=== PATIENT | female | born 1940 | race Caucasian/White ===

== ENCOUNTER 2019-12-19 09:42 | Emergency (ER) | payer OTHER ==
[2019-12-19] MEDS ORDERED: LIDOCAINE 1% MPF 30 ML VIAL ONE (10:13)
--- NOTE | 2019-12-19 10:45 | RAD REPORT ---
EXAM DESCRIPTION: RAD - Wrist Right 2 View - 12/19/2019 10:27 am CLINICAL HISTORY: Right wrist pain status post injury FINDINGS: No fracture or dislocation is seen. Bones are osteoporotic. Limited two-view series obtained If the patient continues to have symptoms to suggest an occult fracture then a followup plain film se sabrina in 7 days would be recommended.
--- NOTE | 2019-12-19 10:47 | RAD REPORT ---
EXAM DESCRIPTION: RAD - Hand Right 3 View - 12/19/2019 10:27 am CLINICAL HISTORY: Right hand pain status post injury FINDINGS: No fracture or dislocation is seen.
--- NOTE | 2019-12-19 11:59 | ER ---
Nurse's Notes [facility] Name: Brooke Liu Age: 79 yrs Sex: Female : 1940 Arrival Date: 12/19/2019 Time: 09:44 Bed 13 Private MD: Diagnosis: Other slipping, tripping and stumbling and falls;Skin avulsioin, dorsum of right wrist; lacerations to lateral aspect of the 4th and 5th digist as well as the hypothenar eminence Presentation: 12/18 10:07 Chief complaint: Patient states: tripped and fell on sidewalk. fell forward skin tear iw to right wrist, laceration to 4th and 5th right digit, swelling to right hand. 10:07 Acuity: ERUM 4 iw 10:07 Method Of Arrival: Ambulatory iw 10:10 Coronavirus screen: Proceed with normal triage. Patient denies a cough. Patient denies iw shortness of breath or difficulty breathing. Patient denies measured and/or subjective temperature greater than 100.4F prior to today's visit. Patient denies travel on a cruise ship or to a country the [facility] currently lists as an affected area. Patient denies contact with known and/or suspected case of COVID-19. Ebola Screen: Patient negative for fever greater than or equal to 101.5 degrees Fahrenheit, and additional compatible Ebola Virus Disease symptoms Patient denies exposure to infectious person. Patient denies travel to an Ebola-affected area in the 21 days before illness onset. No symptoms or risks identified at this time. Initial Sepsis Screen: Does the patient meet any 2 criteria? No. Patient's initial sepsis screen is negative. Does the patient have a suspected source of infection? No. Patient's initial sepsis screen is negative. Risk Assessment: Do you want to hurt yourself or someone else? Patient reports no desire to harm self or others. Onset of symptoms was December 19, 2019. Historical: - Allergies: 10:14 Codeine; iw - Home Meds: 10:14 levothyroxine oral [Active]; Crestor oral oral [Active]; iw - PMHx: 10:14 Hypothyroidism; Hyperlipidemia; iw - PSHx: 10:14 Mastectomy, Left; Mastectomy, Right; iw - Immunization history:: Last tetanus immunization: unknown. Screenin:27 Abuse screen: Denies threats or abuse. Nutritional screening: No deficits noted. Tuberculosis screening: No symptoms or risk factors identified. Fall Risk None identified. Assessment: 10:22 General: Appears uncomfortable, Behavior is cooperative. Pain: Complains of pain in right hand. Neuro: Level of Consciousness is awake, alert, Oriented to person, place, time, situation. Cardiovascular: Heart tones S1 S2 present Capillary refill < 3 seconds Patient's skin is warm and dry. Pulses are palpable in right radial artery and left radial artery. Respiratory: Airway is patent Respiratory effort is even, unlabored, Respiratory pattern is regular, symmetrical. GI: No signs and/or symptoms were reported involving the gastrointestinal system. : No signs and/or symptoms were reported regarding the genitourinary system. EENT: No signs and/or symptoms were reported regarding the EENT system. Derm: No signs and/or symptoms reported regarding the dermatologic system. Musculoskeletal: Swelling present in dorsum of right hand. Injury Description: Laceration sustained to palmar aspect of middle phalanx of right little finger, palmar aspect of middle phalanx of right ring finger and outer aspect of right palm is 0.5 to 2.5 cm long, was sustained 30-60 minutes ago. a small amount of bleeding noted at this time. skin tear noted to top of right wrist. Abrasion noted to right side of upper face. 11:45 Reassessment: Wounds cleaned and dressed at this time. Pt tolerated well. 12:15 Reassessment: Discharge instructions given to Pt and education regarding prescriptions ah and wound care. Pt voiced understanding. Vital Signs: 10:10 BP 153 / 46; Pulse 89; Resp 16; Temp 97.8; Pulse Ox 98% on R/A; Weight 79.38 kg; Height iw 5 ft. 1 in. (154.94 cm); Pain 0/10; 12:00 BP 129 / 48; Pulse 55; Resp 18; Pulse Ox 100% ; ah 10:10 Body Mass Index 33.07 (79.38 kg, 154.94 cm) iw ED Course: 09:44 Patient arrived in ED. ag5 09:53 Elda Delgadillo, RN is Primary Nurse. 09:57 Vish Ku MD is Attending Physician. kdr 10:10 Triage completed. iw 10:14 Arm band placed on. iw 10:27 Hand Right 3 View XRAY In Process Unspecified. EDMS 10:27 Wrist Right 2 View In Process Unspecified. EDMS 10:27 Patient has correct armband on for positive identification. Bed in low position. Call light in reach. Side rails up X 1. 10:45 Assist provider with laceration repair on right hand using sutures. Set up tray. ah Performed by Deangelo HUTSON Dressed with Kerlix, Beck, Xeroform, Patient tolerated well. Patient did not have IV access during this emergency room visit. Dressings: Beck x 2 right hand non-adherent dressing x 1 right hand Vaseline gauze X 1; right hand. Administered Medications: 12:00 Drug: Tetanus-Diphtheria Toxoid Adult 0.5 ml {Rn Anesthetist: [employer]. Exp: 09/27/2021. Lot #: [id number]. } Route: IM; Site: right deltoid; 12:23 Follow up: Response: Medication administered at discharge. 12:07 Drug: traMADol 100 mg Route: PO; 12:24 Follow up: Response: Medication administered at discharge. 12:08 Drug: KeFLEX 500 mg Route: PO; 12:23 Follow up: Response: Medication administered at discharge. Outcome: 11:58 Discharge ordered by . [facility] 12:10 Discharged to home ambulatory. 12:10 Condition: good 12:10 Discharge instructions given to patient, Instructed on discharge instructions, follow up and referral plans. wound care, Demonstrated understanding of instructions, follow-up care, medications, wound care, Prescriptions given X 2. 12:24 Patient left the ED. Signatures: Dispatcher [employer] [facility] Vish Ku MD MD [facility] Suzy Sullivan, RN RN Azeem Banerjee ag5 Elda Delgadillo, RN RN
--- NOTE | 2019-12-19 11:59 | EDPHYS ---
Physician Documentation [facility] Name: Brooke Liu Age: 79 yrs Sex: Female : 1940 Arrival Date: 12/19/2019 Time: 09:44 Bed 13 Private MD: ED Physician Vish Ku HPI: 12/18 11:49 This 79 yrs old Female presents to ER via Ambulatory with complaints of Fall kdr Injury, Finger Injury. 11:49 Details of fall: The patient fell from an upright position, while standing. Onset: The kdr symptoms/episode began/occurred suddenly, just prior to arrival. Associated injuries: The patient sustained Right hand and wrist. Severity of symptoms: At their worst the symptoms were mild, in the emergency department the symptoms are unchanged. The patient has not experienced similar symptoms in the past. The patient has not recently seen a physician. The patient tripped and fell to the ground while walking. Her primary injury is to her right wrist and hand. Historical: - Allergies: 10:14 Codeine; iw - Home Meds: 10:14 levothyroxine oral [Active]; Crestor oral oral [Active]; iw - PMHx: 10:14 Hypothyroidism; Hyperlipidemia; iw - PSHx: 10:14 Mastectomy, Left; Mastectomy, Right; iw - Immunization history:: Last tetanus immunization: unknown. ROS: 11:49 Constitutional: Negative for fever, chills, and weight loss, Eyes: Negative for injury, kdr pain, redness, and discharge. 11:49 MS/extremity: Positive for abrasion, contusion, decreased range of motion, ecchymosis, erythema, laceration, pain, swelling, tenderness, warmth, of the dorsal aspect of right forearm, right wrist and right hand. Exam: 11:49 Constitutional: This is a well developed, well nourished patient who is awake, alert, kdr and in no acute distress. 11:49 Musculoskeletal/extremity: Extremities: grossly normal except: The patient has large 3 x 4 cm skin avulsion to the dorsum of the right wrist. She also has several lacerations to the volar aspect of the hypothenar eminence and the proximal 4th and 5th digits. See the procedure notes for exact locations. Vital Signs: 10:10 BP 153 / 46; Pulse 89; Resp 16; Temp 97.8; Pulse Ox 98% on R/A; Weight 79.38 kg; Height iw 5 ft. 1 in. (154.94 cm); Pain 0/10; 12:00 BP 129 / 48; Pulse 55; Resp 18; Pulse Ox 100% ; ah 10:10 Body Mass Index 33.07 (79.38 kg, 154.94 cm) iw Laceration: 11:28 Wound Repair of 2.7cm ( 1.1in ) subcutaneous laceration to palmar aspect of middle jr8 phalanx of right ring finger. Irregularly shaped.. Minimal bleeding noted.. Distal neuro/vascular/tendon intact. Anesthesia: Local anesthetic administered with 1 mls of 1% lidocaine. Wound prep: Extensive cleansing with hibiclenz, Wound irrigation with saline, Wound explored extensively. Skin closed with 6 4-0 Prolene using interrupted sutures and sterile technique. Patient tolerated well. 11:28 Wound Repair of 2.5cm ( 1.0in ) subcutaneous laceration to palmar aspect of middle jr8 phalanx of right little finger. Distal neuro/vascular/tendon intact. Wound prep: Extensive cleansing with hibiclenz, Wound irrigation with saline, Wound explored extensively. Skin closed with 4 4-0 Prolene using interrupted sutures and sterile technique. Patient tolerated well. 11:28 Wound Repair of 2cm ( 0.8in ) subcutaneous laceration to outer aspect of right palm. jr8 Linear shaped.. Minimal bleeding noted.. Distal neuro/vascular/tendon intact. Anesthesia: Local anesthetic administered with 1 mls of 1% lidocaine. Wound prep: Extensive cleansing with hibiclenz, Wound irrigation with saline, Wound explored extensively. Skin closed with 3 4-0 Prolene using interrupted sutures and sterile technique. Patient tolerated well. MDM: 11:49 Data reviewed: vital signs, nurses notes, radiologic studies. Counseling: I had a kdr detailed discussion with the patient and/or guardian regarding: the historical points, exam findings, and any diagnostic results supporting the discharge/admit diagnosis, radiology results, the need for outpatient follow up. ED course: The patient was stable in the ED and was happy with the plan for discharge and follow-up. 11:58 Patient medically screened. kdr 12/18 10:21 Order name: Hand Right 3 View XRAY; Complete Time: 11:48 kdr 12/18 10:27 Order name: Wrist Right 2 View; Complete Time: 11:48 EDMS Administered Medications: 12:00 Drug: Tetanus-Diphtheria Toxoid Adult 0.5 ml {Branch Account Executive: [employer]. Exp: 09/27/2021. Lot #: [id number]. } Route: IM; Site: right deltoid; 12:23 Follow up: Response: Medication administered at discharge. 12:07 Drug: traMADol 100 mg Route: PO; 12:24 Follow up: Response: Medication administered at discharge. 12:08 Drug: KeFLEX 500 mg Route: PO; 12:23 Follow up: Response: Medication administered at discharge. Disposition: 11:49 Co-signature as Attending Physician, Vish Ku MD I agree with the assessment and kdr plan of care. Disposition: 12/19/19 11:58 Discharged to Home. Impression: Other slipping, tripping and stumbling and falls, Skin avulsioin, dorsum of right wrist; lacerations to lateral aspect of the 4th and 5th digist as well as the hypothenar eminence. - Condition is Stable. - Discharge Instructions: Laceration Care, Adult, [id number]. - Prescriptions for Keflex 500 mg Oral Capsule - take 1 capsule by ORAL route every 6 hours for 10 days; 40 capsule. Tramadol 50 mg Oral Tablet - take 1 tablet by ORAL route every 8 hours as needed; 12 tablet. - Medication Reconciliation Form, Thank You Letter, Antibiotic Education, Prescription Opioid Use form. - Follow up: Private Physician; When: 2 - 3 days; Reason: If symptoms return, Further diagnostic work-up, Recheck today's complaints, Continuance of care, Re-evaluation by your physician. - Problem is new. - Symptoms have improved. - Notes: Sutures out in 10 days. Your wounds are very prone to infection. Return as soon as possible for any worening pain, redness or drainiage. Signatures: Dispatcher [employer] [facility] Vish Ku MD MD [facility] Suzy Sullivan RN RN Deangelo Friedman PA PA jr8 Elda Delgadillo RN RN Corrections: (The following items were deleted from the chart) 10:27 10:21 Wrist Right 3 View+RAD.RAD.BRZ ordered. [facility] 12:24 11:58 12/19/2019 11:58 Discharged to Home. Impression: Other slipping, tripping and ah stumbling and falls; Skin avulsioin, dorsum of right wrist; lacerations to lateral aspect of the 4th and 5th digist as well as the hypothenar eminence. Condition is Stable. Forms are Medication Reconciliation Form, Thank You Letter, Antibiotic Education, Prescription Opioid Use. Follow up: Private Physician; When: 2 - 3 days; Reason: If symptoms return, Further diagnostic work-up, Recheck today's complaints, Continuance of care, Re-evaluation by your physician. Problem is new. Symptoms have improved. kdr
[2019-12-19] MEDS ORDERED: CEPHALEXIN 250 MG CAP ONE (12:04)
[2019-12-19] MEDS ORDERED: TETANUS & DIPHTHERIA TOX,ADULT 0.5 ML VIAL ONE (12:04)
[2019-12-19] MEDS ORDERED: TRAMADOL HCL 50 MG TAB ONE (12:06)
[2019-12-20 02:07] VITALS: TEMP 97.8
[2019-12-20 02:09] VITALS: BP 129/48; O2SAT 100
== END 2019-12-19 12:24 | disposition home or self-care (01) ==
LOC: ER 09:42
PROC: 0JQJ0ZZ Repair Right Hand Subcutaneous Tissue and Fascia, Open Approach (ICD-10-PCS; principal; 2019-12-19)
DX: S61.214A Laceration without foreign body of right ring finger without damage to nail, initial encounter (principal); S61.411A Laceration without foreign body of right hand, initial encounter; W01.0XXA Fall on same level from slipping, tripping and stumbling without subsequent striking against object, initial encounter; Y93.89 Activity, other specified; Y92.9 Unspecified place or not applicable; Z23 Encounter for immunization; Z88.5 Allergy status to narcotic agent; E78.5 Hyperlipidemia, unspecified; E03.9 Hypothyroidism, unspecified
CPT/HCPCS: 90471; 90714; 99284

== ENCOUNTER 2019-12-29 12:03 | Emergency (ER) | payer OTHER ==
--- NOTE | 2019-12-29 12:40 | ER ---
Nurse's Notes [facility] Name: Brooke Liu Age: 79 yrs Sex: Female : 1940 Arrival Date: 12/29/2019 Time: 12:04 Bed 15 Private MD: Diagnosis: Encounter for removal of sutures Presentation: 12/28 12:13 Chief complaint: Patient states: SUTURES PLACED ON 7TH, TOLD TO RETURN IN 10 DAYS FOR bp REMOVAL. Coronavirus screen: Proceed with normal triage. Ebola Screen: No symptoms or risks identified at this time. Initial Sepsis Screen: Does the patient meet any 2 criteria? No. Patient's initial sepsis screen is negative. Does the patient have a suspected source of infection? No. Patient's initial sepsis screen is negative. Risk Assessment: Do you want to hurt yourself or someone else? Patient reports no desire to harm self or others. Onset of symptoms is unknown. 12:13 Method Of Arrival: Ambulatory bp 12:13 Acuity: ERUM 5 bp Triage Assessment: 12:15 General: Appears in no apparent distress. comfortable, Behavior is cooperative, bp appropriate for age, anxious. Pain: Denies pain. EENT: No deficits noted. Neuro: No deficits noted. Cardiovascular: No deficits noted. Respiratory: No deficits noted. GI: No signs and/or symptoms were reported involving the gastrointestinal system. : No signs and/or symptoms were reported regarding the genitourinary system. Derm: No deficits noted. Musculoskeletal: No deficits noted. Injury Description: HEALED SUTURES RIGHT HAND. Historical: - Allergies: 12:15 Codeine; bp - Home Meds: 12:15 Crestor Oral [Active]; levothyroxine oral [Active]; bp - PMHx: 12:15 Hyperlipidemia; Hypothyroidism; bp - Immunization history:: Adult Immunizations up to date. - Social history:: Smoking status: Patient denies any tobacco usage or history of. Screenin:17 Abuse screen: Denies threats or abuse. Denies injuries from another. Nutritional bp screening: No deficits noted. Tuberculosis screening: No symptoms or risk factors identified. Fall Risk None identified. Assessment: 12:17 General: SEE TRIAGE NOTE. bp 12:46 Reassessment: PT D/C HOME AMBULATORY, DX WITH SUTURE REMOVAL. bp Vital Signs: 12:13 BP 140 / 59; Pulse 63; Resp 16; Temp 97.4; Pulse Ox 98% ; bp 12:46 BP 133 / 61; Pulse 61; Resp 16; Temp 97.5; Pulse Ox 97% ; bp ED Course: 12:04 Patient arrived in ED. as 12:06 Franky Goldberg, RN is Primary Nurse. bp 12:14 Triage completed. bp 12:15 Arm band placed on. bp 12:17 Patient has correct armband on for positive identification. Bed in low position. Call bp light in reach. Side rails up X2. 12:19 Marline Gutiérrez FNP-C is [facility]. snw 12:19 Vivek Flores MD is Attending Physician. snw 12:46 No provider procedures requiring assistance completed. Patient did not have IV access bp during this emergency room visit. Administered Medications: No medications were administered Outcome: 12:40 Discharge ordered by MD. snw 12:46 Discharged to home ambulatory. bp 12:46 Condition: stable 12:46 Discharge instructions given to patient, Instructed on discharge instructions, follow up and referral plans. Demonstrated understanding of instructions, follow-up care. 12:48 Patient left the ED. bp Signatures: Marline Gutiérrez FNP-C TRAILER CHIEF-Csnw Sandi Ty as Franky Goldberg, RN RN bp
--- NOTE | 2019-12-29 12:40 | EDPHYS ---
Physician Documentation [facility] Name: Brooke Liu Age: 79 yrs Sex: Female : 1940 Arrival Date: 12/29/2019 Time: 12:04 Bed 15 Private MD: ED Physician Vivek Flores HPI: 12/28 12:43 This 79 yrs old Female presents to ER via Ambulatory with complaints of snw Suture Removal. 12:43 The patient has sutures on the right hand. Previous treatment: The patient was snw initially treated 10 day(s) ago, Treatment type: The patient's original treatment included sutures, Outpatient prescription(s): The patient was given prescription(s) for. Sutures/franci progress: The patient has no c/o's. The wound is well-healing with no redness, swelling, discharge, or dehiscence reported. The patient has not experienced similar symptoms in the past. no c/o. Historical: - Allergies: 12:15 Codeine; bp - Home Meds: 12:15 Crestor Oral [Active]; levothyroxine oral [Active]; bp - PMHx: 12:15 Hyperlipidemia; Hypothyroidism; bp - Immunization history:: Adult Immunizations up to date. - Social history:: Smoking status: Patient denies any tobacco usage or history of. ROS: 12:42 Constitutional: Negative for fever, chills, and weight loss, Eyes: Negative for injury, snw pain, redness, and discharge, ENT: Negative for injury, pain, and discharge, Neck: Negative for injury, pain, and swelling, Cardiovascular: Negative for chest pain, palpitations, and edema, Respiratory: Negative for shortness of breath, cough, wheezing, and pleuritic chest pain, Abdomen/GI: Negative for abdominal pain, nausea, vomiting, diarrhea, and constipation, Back: Negative for injury and pain, : Negative for injury, bleeding, discharge, and swelling, MS/Extremity: Negative for injury and deformity, Neuro: Negative for headache, weakness, numbness, tingling, and seizure, Psych: Negative for depression, anxiety, suicide ideation, homicidal ideation, and hallucinations. 12:42 Skin: Positive for need for suture removal. Exam: 12:40 Constitutional: This is a well developed, well nourished patient who is awake, alert, snw and in no acute distress. 12:40 Eyes: Pupils equal round and reactive to light, extra-ocular motions intact. Lids and lashes normal. Conjunctiva and sclera are non-icteric and not injected. Cornea within normal limits. Periorbital areas with no swelling, redness, or edema. ENT: Nares patent. No nasal discharge, no septal abnormalities noted. Tympanic membranes are normal and external auditory canals are clear. Oropharynx with no redness, swelling, or masses, exudates, or evidence of obstruction, uvula midline. Mucous membranes moist. Neck: Trachea midline, no thyromegaly or masses palpated, and no cervical lymphadenopathy. Supple, full range of motion without nuchal rigidity, or vertebral point tenderness. No Meningismus. Chest/axilla: Normal chest wall appearance and motion. Nontender with no deformity. No lesions are appreciated. Cardiovascular: Regular rate and rhythm with a normal S1 and S2. No gallops, murmurs, or rubs. Normal PMI, no JVD. No pulse deficits. Respiratory: Lungs have equal breath sounds bilaterally, clear to auscultation and percussion. No rales, rhonchi or wheezes noted. No increased work of breathing, no retractions or nasal flaring. Abdomen/GI: Soft, non-tender, with normal bowel sounds. No distension or tympany. No guarding or rebound. No evidence of tenderness throughout. Back: No spinal tenderness. No costovertebral tenderness. Full range of motion. Neuro: Awake and alert, GCS 15, oriented to person, place, time, and situation. Cranial nerves II-XII grossly intact. Motor strength 5/5 in all extremities. Sensory grossly intact. Cerebellar exam normal. Normal gait. Psych: Awake, alert, with orientation to person, place and time. Behavior, mood, and affect are within normal limits. 12:40 Head/face: Noted is healing abrasion to right hoahaoism. 12:40 Musculoskeletal/extremity: Extremities: grossly normal except: noted in the left knee: ecchymosis, tenderness, mild, Circulation is intact in all extremities. Sensation intact. 12:40 Skin: Appearance: normal except for affected area, injury, laceration(s), that can be described as clean, irregular, well approximated. scabbing, no exudate, no erythema. Vital Signs: 12:13 BP 140 / 59; Pulse 63; Resp 16; Temp 97.4; Pulse Ox 98% ; bp 12:46 BP 133 / 61; Pulse 61; Resp 16; Temp 97.5; Pulse Ox 97% ; bp MDM: 12:21 Patient medically screened. snw 12:42 Data reviewed: vital signs, nurses notes. Counseling: I had a detailed discussion with snw the patient and/or guardian regarding: the historical points, exam findings, and any diagnostic results supporting the discharge/admit diagnosis, the presence of at least one elevated blood pressure reading (>120/80) during this emergency department visit, the need for outpatient follow up, to return to the emergency department if symptoms worsen or persist or if there are any questions or concerns that arise at home. Administered Medications: No medications were administered Disposition: 12:48 Co-signature as Attending Physician, Vivek Flores MD. rn Disposition: 12/29/19 12:40 Discharged to Home. Impression: Encounter for removal of sutures. - Condition is Stable. - Discharge Instructions: Stitches, [place], or Adhesive Wound Closure, Wound Closure Removal, Wound Care. - Medication Reconciliation Form, Thank You Letter, Antibiotic Education, Prescription Opioid Use form. - Follow up: Emergency Department; When: As needed; Reason: Worsening of condition. Follow up: Private Physician; When: As needed; Reason: Continuance of care. Signatures: Marline Gutiérrez, ACCOUNT DEVELOPMENT MANAGER-C ACCOUNT DEVELOPMENT MANAGER-Csnw Vivek Flores MD MD rn Peltier, Brian, RN RN bp Corrections: (The following items were deleted from the chart) 12:48 12:40 12/29/2019 12:40 Discharged to Home. Impression: Encounter for removal of bp sutures. Condition is Stable. Discharge Instructions: Stitches, [place], or Adhesive Wound Closure, Wound Closure Removal, Wound Care. Forms are Medication Reconciliation Form, Thank You Letter, Antibiotic Education, Prescription Opioid Use. Follow up: Emergency Department; When: As needed; Reason: Worsening of condition. Follow up: Private Physician; When: As needed; Reason: Continuance of care. snw
[2019-12-29 12:54] VITALS: BP 133/61; TEMP 97.5; O2SAT 97
== END 2019-12-29 12:48 | disposition home or self-care (01) ==
LOC: ER 12:03
DX: Z48.02 Encounter for removal of sutures (principal)
CPT/HCPCS: 99281

== ENCOUNTER 2021-08-06 08:45 | Emergency (ER) | payer OTHER ==
--- OUTSIDE RECORDS SUMMARY | 2021-08-06 08:47 | XMS REPORT | Continuity of Care Document ---
:1940 Author Organization [facility] t Address [facility] [place] [id number] Care Team Providers Name Role Phone DR JEAN MARIE Attending Clinician Unavailable DR JEAN MARIE Admitting Clinician Unavailable Problems This patient has no known problems. Allergies, Adverse Reactions, Alerts This patient has no known allergies or adverse reactions. Medications This patient has no known medications. Procedures This patient has no known procedures. Encounters Start End Encounter Admission Attending Care Care Encounter Source Date/Time Date/Time Type Type Clinicians Facility Department ID 2017-07-21 Inpatient C [facility] [id number] [facility] 07:00:00 [facility] Results This patient has no known results.
[2021-08-06 10:08] LABS: SARS-COV-2 RT PCR POSITIVE (NEGATIVE)
--- NOTE | 2021-08-06 10:27 | ER ---
Nurse's Notes [facility] Name: Brooke Liu Age: 80 yrs Sex: Female : 1940 Arrival Date: 08/06/2021 Time: 08:46 Bed 6 Private MD: Diagnosis: Coronavirus infection, unspecified Presentation: 08/06 08:50 Chief complaint: Patient states: Stuffy nose x 3 days and body aches that began ss yesterday. Pt wants to make sure she doesn't have COVID before the holidays. Coronavirus screen: Client denies travel out of the [place] in the last 14 days. Ebola Screen: Patient denies exposure to infectious person. Patient denies travel to an Ebola-affected area in the 21 days before illness onset. Initial Sepsis Screen: Does the patient meet any 2 criteria? No. Patient's initial sepsis screen is negative. Does the patient have a suspected source of infection? No. Patient's initial sepsis screen is negative. Risk Assessment: Do you want to hurt yourself or someone else? Patient reports no desire to harm self or others. Onset of symptoms was August 03, 2021. 08:50 Method Of Arrival: Ambulatory ss 08:50 Acuity: ERUM 4 ss Historical: - Allergies: 08:51 Codeine; ll1 - PMHx: 08:51 Hyperlipidemia; Hypothyroidism; ll1 - Immunization history:: Adult Immunizations up to date. - Social history:: Smoking status: Patient denies any tobacco usage or history of. Patient/guardian denies using alcohol, street drugs, The patient lives with family. - Family history:: not pertinent. Screenin:02 Abuse screen: Denies threats or abuse. Nutritional screening: No deficits noted. ll1 Tuberculosis screening: No symptoms or risk factors identified. Fall Risk Total Johnson Fall Scale indicates No Risk (0-24 pts). Assessment: 09:01 General: Appears in no apparent distress. Behavior is calm, cooperative, appropriate ll1 for age. Pain: Denies pain. Neuro: No deficits noted. Cardiovascular: No deficits noted. Patient's skin is warm and dry. Respiratory: Airway is patent Breath sounds are clear bilaterally. EENT: Nares are clear Reports nasal congestion. 10:00 Reassessment: No changes from previously documented assessment. Patient and/or family ll1 updated on plan of care and expected duration. Pain level reassessed. Patient is alert, oriented x 3, equal unlabored respirations, skin warm/dry/pink. 10:32 Reassessment: No changes from previously documented assessment. Patient and/or family ll1 updated on plan of care and expected duration. Pain level reassessed. Patient is alert, oriented x 3, equal unlabored respirations, skin warm/dry/pink. Vital Signs: 08:50 Resp 16; Weight 81.65 kg; Height 5 ft. 1 in. (154.94 cm); Pain 0/10; ss 09:00 BP 140 / 53; Pulse 62; Resp 16; Temp 98.6; Pulse Ox 97% on R/A; Pain 0/10; ll1 10:31 BP 121 / 49; Pulse 56; ll1 08:50 Body Mass Index 34.01 (81.65 kg, 154.94 cm) ED Course: 08:46 Patient arrived in ED. ds1 08:51 Ryan Ureña RN is Primary Nurse. ll1 08:51 Arm band placed on Patient placed in an exam room, on a stretcher. ll1 08:58 Deangelo Friedman PA is PHCP. jr8 08:58 Jhonathan Hubbard MD is Attending Physician. jr8 08:59 Triage completed. 09:03 Patient has correct armband on for positive identification. Bed in low position. Call ll1 light in reach. Side rails up X 1. Cardiac monitoring not applicable on this patient. 10:32 No provider procedures requiring assistance completed. Patient did not have IV access ll1 during this emergency room visit. Administered Medications: No medications were administered Outcome: 10:26 Discharge ordered by . juan [email or web address] 10:32 Discharged to home ambulatory. ll1 10:32 Condition: stable 10:32 Discharge instructions given to patient, Instructed on discharge instructions, follow up and referral plans. medication usage, Demonstrated understanding of instructions, follow-up care, medications, Prescriptions given X 1. 10:33 Patient left the ED. ll1 Signatures: [place]o Mata ds1 Teressa Hook RN RN Deangelo Friedman PA PA jr8 Jhonathan Hubbard MD MD ma2 Lewis, Lynsay, RN RN ll1
--- NOTE | 2021-08-06 10:27 | EDPHYS ---
Physician Documentation [facility] Name: Brooke Liu Age: 80 yrs Sex: Female : 1940 Arrival Date: 08/06/2021 Time: 08:46 Bed 6 Private MD: ED Physician Jhonathan Hubbard HPI: 08/06 09:18 This 80 yrs old Female presents to ER via Ambulatory with complaints of Congestion, ma2 Sore Throat. 09:18 Onset: The symptoms/episode began/occurred gradually, 2 day(s) ago. Severity of ma2 symptoms: At their worst the symptoms were moderate, in the emergency department the symptoms are unchanged. Associated signs and symptoms: Pertinent negatives diarrhea, fever, flu-like symptoms, nausea. The patient has not experienced similar symptoms in the past. Historical: - Allergies: 08:51 Codeine; ll1 - PMHx: 08:51 Hyperlipidemia; Hypothyroidism; ll1 - Immunization history:: Adult Immunizations up to date. - Social history:: Smoking status: Patient denies any tobacco usage or history of. Patient/guardian denies using alcohol, street drugs, The patient lives with family. - Family history:: not pertinent. ROS: 09:18 Constitutional: Negative for fever, chills, and weight loss. ma2 09:18 All other systems are negative. Exam: 09:18 Constitutional: This is a well developed, well nourished patient who is awake, alert, ma2 and in no acute distress. Head/Face: Normocephalic, atraumatic. Eyes: Pupils equal round and reactive to light, extra-ocular motions intact. Lids and lashes normal. Conjunctiva and sclera are non-icteric and not injected. Cornea within normal limits. Periorbital areas with no swelling, redness, or edema. ENT: Nares patent. No nasal discharge, no septal abnormalities noted. Tympanic membranes are normal and external auditory canals are clear. Oropharynx with no redness, swelling, or masses, exudates, or evidence of obstruction, uvula midline. Mucous membranes moist. Neck: Trachea midline, no thyromegaly or masses palpated, and no cervical lymphadenopathy. Supple, full range of motion without nuchal rigidity, or vertebral point tenderness. No Meningismus. Chest/axilla: Normal chest wall appearance and motion. Nontender with no deformity. No lesions are appreciated. Cardiovascular: Regular rate and rhythm with a normal S1 and S2. No gallops, murmurs, or rubs. Normal PMI, no JVD. No pulse deficits. Respiratory: Lungs have equal breath sounds bilaterally, clear to auscultation and percussion. No rales, rhonchi or wheezes noted. No increased work of breathing, no retractions or nasal flaring. Abdomen/GI: Soft, non-tender, with normal bowel sounds. No distension or tympany. No guarding or rebound. No evidence of tenderness throughout. Vital Signs: 08:50 Resp 16; Weight 81.65 kg; Height 5 ft. 1 in. (154.94 cm); Pain 0/10; ss 09:00 BP 140 / 53; Pulse 62; Resp 16; Temp 98.6; Pulse Ox 97% on R/A; Pain 0/10; ll1 10:31 BP 121 / 49; Pulse 56; ll1 08:50 Body Mass Index 34.01 (81.65 kg, 154.94 cm) ss MDM: 08:58 Patient medically screened. jr8 09:18 Differential diagnosis: bronchitis, gastroesophageal reflux disease, pharyngitis, upper ma2 respiratory infection. Data reviewed: vital signs, nurses notes, EMS record. 10:25 Counseling: I had a detailed discussion with the patient and/or guardian regarding: the ma2 historical points, exam findings, and any diagnostic results supporting the discharge/admit diagnosis, the presence of at least one elevated blood pressure reading (>120/80) during this emergency department visit, the need for outpatient follow up. Response to treatment: the patient's symptoms have markedly improved after treatment. 08/06 09:00 Order name: Droplet/Contact Precautions; Complete Time: 09:04 ll1 08/06 09:24 Order name: COVID-19/FLU A+B EDMS 08/06 09:00 Order name: Labs collected and sent; Complete Time: 09:04 ll1 Administered Medications: No medications were administered Disposition Summary: 08/06/21 10:26 Discharge Ordered Location: Home ma2 Condition: Stable ma2 Diagnosis - Coronavirus infection, unspecified ma2 Followup: ma2 - With: Private Physician - When: Tomorrow - Reason: If symptoms return, Continuance of care Discharge Instructions: - Discharge Summary Sheet ma2 - COVID-19 ma2 - 10 Things You Can Do to Manage Your COVID-19 Symptoms at Home - [facility] ma2 - COVID-19: Quarantine vs. Isolation - [facility] ma2 Forms: - Medication Reconciliation Form ma2 - Thank You Letter ma2 - Antibiotic Education ma2 - Prescription Opioid Use ma2 Prescriptions: - Zithromax Z-Karl 250 mg Oral Tablet - take 1 tablet by ORAL route as directed for 5 days Day 1 - take two (2) tablets ma2 one time. Day 2, 3, 4 , 5 take one (1) tablet once daily.; 6 tablet; Refills: 0, Product Selection Permitted Signatures: Dispatcher [employer] EDMS Teressa Hook RN RN ss Deangelo Friedman PA PA jr8 Jhonathan Hubbard MD MD ma2 Ryan Ureña RN RN ll1 Corrections: (The following items were deleted from the chart) 09:24 09:01 Influenza Screen (A ordered. EDMS EDMS 09:24 09:01 Influenza Screen (A \T\ B)+BA.LAB.BRZ ordered. EDMS EDMS 09:25 09:03 CORONAVIRUS+MR.LAB.BRZ ordered. EDMS EDMS
[2021-08-06 10:38] VITALS: TEMP 98.6; O2SAT 97
[2021-08-06 10:39] VITALS: BP 121/49
== END 2021-08-06 10:33 | disposition home or self-care (01) ==
LOC: ER 08:45
DX: U07.1 COVID-19 (principal); Z88.5 Allergy status to narcotic agent
CPT/HCPCS: 0240U; 99282

== ENCOUNTER 2024-02-10 16:55 | Emergency (ER) | payer OTHER ==
[2024-02-10 17:43] LABS: SARS-CoV-2 Antigen CONTROL BLUE LINE VIS/BG OK; SARS-CoV-2 Antigen Rapid Res Positive (Negative)
--- NOTE | 2024-02-10 18:42 | RAD REPORT ---
EXAM DESCRIPTION: RAD - Chest Pa And Lat (2 Views) - 02/10/2024 6:16 pm CLINICAL HISTORY: COUGH COMPARISON: Chest Pa And Lat (2 Views) dated 02/02/2023; CHEST PA AND LAT 2 VIEW dated 10/19/2009; CHES T PA AND LAT 2 VIEW dated 08/16/1997 TECHNIQUE: PA and lateral views of the chest were obtained. FINDINGS: The lungs are clear. Heart size is normal and central vasculature is within normal limits. Small calcified hilar lymph nodes again seen. No pleural effusion or pneumothorax seen. No acute bon y finding noted. IMPRESSION: No acute cardiopulmonary process.
--- NOTE | 2024-02-10 18:44 | ER ---
Nurse's Notes [facility] Name: Brooke Liu Age: 83 yrs Sex: Female : 1940 Arrival Date: 02/10/2024 Time: 16:55 Bed 12 Private MD: Diagnosis: SARS-associated coronavirus as the cause of diseases classified elsewhere Presentation: 02/09 17:13 Chief complaint: Patient states: Flu like symptoms onset yesterday. Pt reports fever, cm10 cough, runny nose, and sore throat. Coronavirus screen: Client denies travel out of the [place] in the last 14 days. At this time, the client does not indicate any symptoms associated with coronavirus-19. Ebola Screen: Patient denies travel to an Ebola-affected area in the 21 days before illness onset. No symptoms or risks identified at this time. Initial Sepsis Screen: Does the patient meet any 2 criteria? No. Patient's initial sepsis screen is negative. Does the patient have a suspected source of infection? No. Patient's initial sepsis screen is negative. Risk Assessment: Do you want to hurt yourself or someone else? Patient reports no desire to harm self or others. Onset of symptoms was February 10, 2024. 17:13 Method Of Arrival: Ambulatory cm10 17:13 Acuity: ERUM 4 cm10 Triage Assessment: 17:15 General: Appears in no apparent distress. comfortable, Behavior is calm, cooperative. cm10 Neuro: No deficits noted. Level of Consciousness is awake, alert, obeys commands, Oriented to person, place, time, situation, Appropriate for age. Respiratory: No deficits noted. Airway is patent Respiratory effort is even, unlabored, Respiratory pattern is regular, symmetrical. Historical: - Allergies: 17:15 Codeine; cm10 - PMHx: 17:15 Hyperlipidemia; Hypothyroidism; cm10 - PSHx: 17:15 hysterectomy; cm10 - Immunization history:: Adult Immunizations up to date. - Infectious Disease History:: Denies. - Social history:: Smoking status: Patient denies any tobacco usage or history of. Screenin:46 [facility] ED Fall Risk Assessment (Adult) History of falling in the last 3 months, as6 including since admission No falls in past 3 months (0 pts) Confusion or Disorientation No (0 pts) Intoxicated or Sedated No (0 pts) Impaired Gait No (0 pts) Mobility Assist Device Used No (0 pt) Altered Elimination No (0 pt) Score/Fall Risk Level 0 - 2 = Low Risk Oriented to surroundings, Maintained a safe environment, Educated pt \T\ family on fall prevention, incl call for assistance when getting out of bed, Assessed \T\ reinforced patient's understanding of fall precautions. Abuse screen: Denies threats or abuse. Denies injuries from another. Nutritional screening: No deficits noted. Tuberculosis screening: No symptoms or risk factors identified. Vital Signs: 17:13 BP 153 / 60; Pulse 73; Resp 18; Temp 99.4; Pulse Ox 96% on R/A; Weight 88.45 kg; Height cm10 5 ft. 0 in. ; Pain 6/10; 18:55 Pulse 76; Resp 18; Pulse Ox 100% ; as6 17:13 Body Mass Index 38.08 (88.45 kg, 152.4 cm) cm10 17:13 Pain Scale: Adult cm10 ED Course: 16:59 Patient arrived in ED. ts1 17:04 Cleo Oates FNP-C [facility]. kb 17:04 Vivek Flores MD is Attending Physician. kb 17:14 Triage completed. cm10 17:15 Arm band placed on Patient placed in an exam room, on a stretcher. cm10 18:17 Chest Pa And Lat (2 Views) XRAY In Process Unspecified. EDMS 18:46 Bed in low position. Call light in reach. Provided Education on: follow up. as6 18:47 No provider procedures requiring assistance completed. Patient did not have IV access as6 during this emergency room visit. Administered Medications: No medications were administered Medication: 18:47 VIS not applicable for this client. as6 Outcome: 18:43 Discharge ordered by . kb 18:47 Discharged to home ambulatory, as6 18:47 Condition: stable 18:47 Discharge instructions given to patient, Instructed on discharge instructions, follow as6 up and referral plans. Demonstrated understanding of instructions, follow-up care, 18:55 Patient left the ED. as6 Signatures: Dispatcher [employer] EDNE Cleo Oates FNP-C FNP-Ckb Slawson, Ashby, RN RN as6 Roma Galvan PAS PAS ts1 Gunjan Ty RN RN cm10
--- NOTE | 2024-02-10 18:44 | EDPHYS ---
Physician Documentation [facility] Name: Brooke Liu Age: 83 yrs Sex: Female : 1940 Arrival Date: 02/10/2024 Time: 16:55 Bed 12 Private MD: ED Physician Vivek Flores HPI: 02/09 17:17 This 83 yrs old Female presents to ER via Ambulatory with complaints of Flu Symptoms. kb 17:18 Pt is an 83 year old female who presents for slight cough, postnasal drip, rhinorrhea kb and fever that started yesterday. States she woke up hoarse this morning. Denies chest pain, shortness of breath. Historical: - Allergies: 17:15 Codeine; cm10 - PMHx: 17:15 Hyperlipidemia; Hypothyroidism; cm10 - PSHx: 17:15 hysterectomy; cm10 - Immunization history:: Adult Immunizations up to date. - Infectious Disease History:: Denies. - Social history:: Smoking status: Patient denies any tobacco usage or history of. ROS: 17:17 Constitutional: As per HPI kb Exam: 17:17 Constitutional: This is a well developed, well nourished patient who is awake, alert, kb and in no acute distress. Head/Face: Normocephalic, atraumatic. ENT: Moist Mucous membranes Cardiovascular: Regular rate Respiratory: Respirations even and unlabored. No increased work of breathing. Talking in full sentences Abdomen/GI: Soft, non-tender. No distention Skin: Warm, dry with normal turgor. Normal color. MS/ Extremity: Pulses equal, no cyanosis. Neurovascular intact. Full, normal range of motion. Neuro: Awake and alert, GCS 15, oriented to person, place, time, and situation. Moves all extremities. Normal gait. Vital Signs: 17:13 BP 153 / 60; Pulse 73; Resp 18; Temp 99.4; Pulse Ox 96% on R/A; Weight 88.45 kg; Height cm10 5 ft. 0 in. ; Pain 6/10; 18:55 Pulse 76; Resp 18; Pulse Ox 100% ; as6 17:13 Body Mass Index 38.08 (88.45 kg, 152.4 cm) cm10 17:13 Pain Scale: Adult cm10 MDM: 17:05 Patient medically screened. kb 17:17 Differential Diagnosis: Bronchitis Influenza Upper Respiratory Infection Pneumonia kb Other covid. Data reviewed: vital signs, nurses notes. 18:43 I considered the following discharge prescriptions or medication management in the emergency department I discussed and recommended Over The Counter medications, Antibiotics: At this time antibiotics are not recommended, Antivirals: At this time, antivirals are not recommended. Counseling: I had a detailed discussion with the patient and/or guardian regarding the historical points, exam findings, and any diagnostic results supporting the discharge/admit diagnosis, lab results, radiology results, the need for outpatient follow up, a family practitioner, to return to the emergency department if symptoms worsen or persist or if there are any questions or concerns that arise at home. 02/09 17:16 Order name: Flu; Complete Time: 17:50 kb 02/09 17:16 Order name: SARS-COV-2 Antigen Rapid; Complete Time: 17:46 kb 02/09 17:16 Order name: Strep kb 02/09 17:45 Order name: Throat Culture EDSD 02/09 17:16 Order name: Chest Pa And Lat (2 Views) XRAY; Complete Time: 18:43 kb Administered Medications: No medications were administered Disposition Summary: 02/10/24 18:43 Discharge Ordered Notes: Location: Home kb Condition: Stable kb Diagnosis - SARS-associated coronavirus as the cause of diseases classified elsewhere kb Followup: kb - With: Emergency Department - When: As needed - Reason: Worsening of condition Followup: kb - With: Private Physician - When: 2 - 3 days - Reason: Recheck today's complaints, Continuance of care, Re-evaluation by your physician Discharge Instructions: - Discharge Summary Sheet kb - COVID-19 kb - Viral Illness, Adult kb Forms: - Medication Reconciliation Form kb - Antibiotic Education kb - Prescription Opioid Use kb - Patient Portal Instructions kb - Leadership Thank You Letter kb Signatures: Dispatcher [employer] Cleo Guzman, CARLOS FREY-Gunjan Hager, RN RN cm10
[2024-02-10 19:19] VITALS: BP 153/60; TEMP 99.4; O2SAT 100
== END 2024-02-10 18:55 | disposition home or self-care (01) ==
LOC: ER 16:55
DX: U07.1 COVID-19 (principal); Z88.5 Allergy status to narcotic agent
CPT/HCPCS: 36415; 71046; 87070; 87081; 87804; 87811; 99282